=== PATIENT | male | born 1940 | race Caucasian/White ===

== ENCOUNTER 2017-10-19 11:04 | Emergency (ER) | payer MEDICARE, OTHER ==
--- NOTE | 2017-10-19 11:56 | CR ---
Chest 1V Frontal FINDINGS: The patient has had a prior sternotomy. The heart and vascular structures are normal in alexis earance. No infiltrates or effusions are demonstrated. Impression: 1. No acute findings.
--- NOTE | 2017-10-19 12:20 | EDM.PDOC ---
ED HPI GENERAL MEDICAL PROBLEM - General Chief Complaint: Cardiovascular Problem Stated Complaint: heart NAUSA Time Seen by Provider: 10/19/17 11:30 Source of Information: Reports: Patient, Family History Limitations: Reports: No Limitations - History of Present Illness INITIAL COMMENTS - FREE TEXT/NARRATIVE: pt arrived stating that he started having an episode in the middle of the nite when he became quite sweaty anf nauseated. He did not feel sob or have chest pain. He did not have chest tightness. He has a history of stopping his asa on sunday because he is supposed to have shoulder surgery the first of the week. Since he does not have chest pain and is trying to prepare for surgery asa will not be given unless he develops pain and ekg changes. Onset: Today, Sudden, Other ( started in the nite. ) Duration: Hour(s): Location: Reports: Other (pt had no chest pain. He had alot of nausea and he became very sweaty. ) Associated Symptoms: Reports: Nausea/Vomiting, Weakness - Related Data Allergies Allergy/AdvReac Type Severity Reaction Status Date / Time No Known Allergies Allergy Verified 10/19/17 11:15 Home Meds: Home Meds Aspirin [Aspirin EC] 81 mg PO DAILY 05/22/16 [History] atorvaSTATin [Lipitor] 40 mg PO BEDTIME 05/22/16 [History] Past Medical History HEENT History: Reports: Impaired Vision Cardiovascular History: Reports: Bypass, CAD, High Cholesterol Gastrointestinal History: Reports: Colon Polyp Musculoskeletal History: Reports: Osteoarthritis Oncologic (Cancer) History: Reports: Prostate, Squamous Cell Carcinoma Dermatologic History: Reports: Other (See Below) Other Dermatologic History: skin cancer squamous cell. - Infectious Disease History Infectious Disease History: Reports: Chicken Pox, Measles, Mumps - Past Surgical History Cardiovascular Surgical History: Reports: Carotid Endarterectomy, Coronary Artery Bypass Male Surgical History: Reports: Prostatectomy Musculoskeletal Surgical History: Reports: Other (See Below) Other Musculoskeletal Surgeries/Procedures:: upcoming rotator cuff surgery Early october 2017. Dermatological Surgical History: Reports: Skin Biopsy Social & Family History - Tobacco Use Smoking Status *Q: Never Smoker Years of Tobacco use: 25 Packs/Tins Daily: 1 - Alcohol Use Days Per Week of Alcohol Use: 7 Number of Drinks Per Day: 2 Total Drinks Per Week: 14 - Recreational Drug Use Recreational Drug Use: No ED ROS GENERAL - Review of Systems Review Of Systems: See Below Constitutional: Reports: Weakness, Diaphoresis HEENT: Reports: No Symptoms Respiratory: Reports: Shortness of Breath, Other ( At this time he developed sob. ) Cardiovascular: Reports: Lightheadedness, Other (sweaty. ) Endocrine: Reports: No Symptoms GI/Abdominal: Reports: No Symptoms : Reports: No Symptoms Musculoskeletal: Reports: No Symptoms Skin: Reports: No Symptoms ED EXAM, GENERAL - Physical Exam Exam: See Below Free Text/Narrative:: pt had an episode of markd diaphores several times since 3 am. He did not have cheat pain. He was very mildly sob. Exam Limited By: No Limitations General Appearance: Alert, No Apparent Distress, Anxious, Other (pupils equal and reactive. ) Ears: Normal TMs Nose: Normal Inspection Throat/Mouth: Normal Inspection Head: Atraumatic Neck: Normal Inspection Respiratory/Chest: No Respiratory Distress Cardiovascular: Regular Rate, Rhythm, Other (pt does not have chest wall tenderness. ) GI/Abdominal: Soft, Non-Tender (Male) Exam: Deferred Rectal (Males) Exam: Deferred Back Exam: Normal Inspection Extremities: Normal Inspection Neurological: Alert, Oriented, Normal Cognition Psychiatric: Anxious Course - Vital Signs Last Recorded V/S: Last Vital Signs Temp 36.5 C 10/19/17 13:50 Pulse 59 L 10/19/17 14:50 Resp 11 L 10/19/17 14:50 BP 154/81 H 10/19/17 14:50 Pulse Ox 98 10/19/17 14:50 Orthostatic Blood Pressure [ 140/73 Standing] Orthostatic Blood Pressure [ 137/87 Sitting] Orthostatic Blood Pressure [ 161/81 Supine] - Orders/Labs/Meds Orders: Active Orders 24 hr Category Date Time Status EKG Documentation Completion [RC] ASDIRECTED Care 10/19/17 11:11 Active EKG Documentation Completion [RC] ASDIRECTED Care 10/19/17 14:05 Active Orthostatic Vital Signs [RC] ASDIRECTED Care 10/19/17 13:42 Active EKG 12 Lead [EK] Routine Ther 10/19/17 11:11 Ordered EKG 12 Lead [EK] Routine Ther 10/19/17 14:04 Ordered Labs: Laboratory Tests 10/19/17 10/19/17 10/19/17 Range/Units 11:22 11:22 11:22 WBC 6.3 (4.5-11.0) K/uL RBC 4.71 (4.30-5.90) M/uL Hgb 15.1 H (12.0-15.0) g/dL Hct 44.4 (40.0-54.0) % MCV 94 (80-98) fL MCH 32 H (27-31) pg MCHC 34 (32-36) % Plt Count 215 (150-400) K/uL Neut % (Auto) 72 H (36-66) % Lymph % (Auto) 20 L (24-44) % Norman % (Auto) 7 H (2-6) % Eos % (Auto) 1 L (2-4) % Baso % (Auto) 0 (0-1) % Sodium 141 (140-148) mmol/L Potassium 4.5 (3.6-5.2) mmol/L Chloride 106 (100-108) mmol/L Carbon Dioxide 27 (21-32) mmol/L Anion Gap 8.3 (5.0-14.0) mmol/L BUN 24 H (7-18) mg/dL Creatinine 1.3 (0.8-1.3) mg/dL Est Cr Clr Drug Dosing 42.26 mL/min Estimated GFR (MDRD) 53 L (>60) Glucose 133 H (74-106) mg/dL Calcium 9.0 (8.5-10.1) mg/dL Total Bilirubin 0.5 (0.2-1.0) mg/dL AST 23 (15-37) U/L ALT 28 (12-78) U/L Alkaline Phosphatase 59 (46-116) U/L Troponin I < 0.017 (0.000-0.056) ng/mL C-Reactive Protein (0.0-0.3) mg/dL Total Protein 6.7 (6.4-8.2) g/dL Albumin 3.7 (3.4-5.0) g/dL Globulin 3.0 (2.3-3.5) g/dL Albumin/Globulin Ratio 1.2 (1.2-2.2) Lipase (73-393) U/L 10/19/17 10/19/17 10/19/17 Range/Units 12:17 12:26 14:48 WBC (4.5-11.0) K/uL RBC (4.30-5.90) M/uL Hgb (12.0-15.0) g/dL Hct (40.0-54.0) % MCV (80-98) fL MCH (27-31) pg MCHC (32-36) % Plt Count (150-400) K/uL Neut % (Auto) (36-66) % Lymph % (Auto) (24-44) % Norman % (Auto) (2-6) % Eos % (Auto) (2-4) % Baso % (Auto) (0-1) % Sodium (140-148) mmol/L Potassium (3.6-5.2) mmol/L Chloride (100-108) mmol/L Carbon Dioxide (21-32) mmol/L Anion Gap (5.0-14.0) mmol/L BUN (7-18) mg/dL Creatinine (0.8-1.3) mg/dL Est Cr Clr Drug Dosing mL/min Estimated GFR (MDRD) (>60) Glucose (74-106) mg/dL Calcium (8.5-10.1) mg/dL Total Bilirubin (0.2-1.0) mg/dL AST (15-37) U/L ALT (12-78) U/L Alkaline Phosphatase (46-116) U/L Troponin I < 0.017 (0.000-0.056) ng/mL C-Reactive Protein 0.03 (0.0-0.3) mg/dL Total Protein (6.4-8.2) g/dL Albumin (3.4-5.0) g/dL Globulin (2.3-3.5) g/dL Albumin/Globulin Ratio (1.2-2.2) Lipase 200 (73-393) U/L - Re-Assessments/Exams Free Text/Narrative Re-Assessment/Exam: 10/19/17 15:00 pt had a normal trop and no significant acute findings on his ekg.. He had a repeat ekg in 2.5 hours. He had a repeat trop.-- which is negative. 10/19/17 15:16 10/20/17 09:15 PT WAS NOT GIVEN ASA BECAUSE HE DID NOT HAVE CHEST PAIN AND HE IS PREPARING FOR A SURGERY AND IS OFF ASA. Departure - Departure Time of Disposition: 15:25 Disposition: Home, Self-Care 01 Condition: Fair Clinical Impression: Diaphoresis, Coronary artery disease Instructions: Coronary Artery Disease, Male Referrals: PCP,None [Primary Care Provider] - Forms: ED Department Discharge Care Plan Goals: schedule a lexiscan Sunday. rtc if pt has any further episodes. Pt will have the lexiscan Sunday to clear him for surgery. - My Orders Last 24 Hours: My Active Orders 10/19/17 11:11 EKG Documentation Completion [RC] ASDIRECTED EKG 12 Lead [EK] Routine 10/19/17 13:42 Orthostatic Vital Signs [RC] ASDIRECTED 10/19/17 14:04 EKG 12 Lead [EK] Routine 10/19/17 14:05 EKG Documentation Completion [RC] ASDIRECTED - Assessment/Plan Last 24 Hours: My Active Orders 10/19/17 11:11 EKG Documentation Completion [RC] ASDIRECTED EKG 12 Lead [EK] Routine 10/19/17 13:42 Orthostatic Vital Signs [RC] ASDIRECTED 10/19/17 14:04 EKG 12 Lead [EK] Routine 10/19/17 14:05 EKG Documentation Completion [RC] ASDIRECTED
[2017-10-19 14:51] VITALS: BP 154/81
== END 2017-10-19 15:53 | disposition home or self-care (01) ==
LOC: JP.ED 11:04
DX: I25.10 Atherosclerotic heart disease of native coronary artery without angina pectoris (principal); R61 Generalized hyperhidrosis; E78.00 Pure hypercholesterolemia, unspecified; Z79.82 Long term (current) use of aspirin
CPT/HCPCS: 36415; 71045; 71045-26; 80053; 83690; 84484; 85025; 86140; 93005; 99284-25

== ENCOUNTER 2019-05-14 06:32 | Day surgery (SDC) | payer MEDICARE ==
[2019-05-14] MEDS ORDERED: Lactated Ringers 1,000 ML IV SCH (07:00)
[2019-05-14] MEDS ORDERED: Propofol 200 MG/20 ML SDV ONE (07:28)
[2019-05-14] MEDS ORDERED: fentaNYL 100 MCG/2 ML SDV ONE (07:28)
[2019-05-14] MEDS ORDERED: Midazolam 1 MG/ML 2 ML SDV ONE (07:28)
[2019-05-14 08:54] VITALS: BP 115/72; PULSE 50
--- NOTE | 2019-05-15 08:41 | OR ---
DATE OF PROCEDURE: 05/14/2019 SURGEON: Diego Serra MD PREOPERATIVE DIAGNOSES: Strong family history of colon cancer, father had colon cancer. Personal history of polyps, change in bowel habits. POSTOPERATIVE DIAGNOSES: Unremarkable colonoscopy, strong family history of colon cancer. Father had colon cancer. Personal history of polyps, change in bowel habits, etiology unknown. PROCEDURE: Colonoscopy to the cecum. ANESTHESIA: IV anesthesia with monitored anesthesia care. INDICATION: This 78-year-old white male is referred for a colonoscopy because of a change in bowel habits, strong family history of colon cancer, and a personal history of polyps. He says for the past 3 weeks or so, he has had pencil-thin stools. He says his stools also used to float and now they sink to the bottom of the bowl and their color has changed to a whaley. He says the last colonoscopic exam was done 3 years ago. I counseled him for a colonoscopy with possible biopsy and/or polypectomy including risks and alternatives, and he gave his informed consent to proceed. DESCRIPTION OF PROCEDURE: The patient was placed in the left lateral decubitus position. IV anesthesia was administered by the Anesthesia Service. Time-out was held. A rectal exam was performed, which was unremarkable. The flexible video Olympus colonoscope was introduced through his anus, up his rectum, and out his colon all the way to the cecum. Once the cecum was reached, the scope was slowly withdrawn examining the mucosa throughout. No mucosal abnormalities were noted. The scope was retroflexed in the rectum with the distal rectum appearing unremarkable. The scope was straightened and removed. He tolerated the procedure well. Diego Serra MD /[id number]
== END 2019-05-14 09:00 | disposition home or self-care (01) ==
LOC: JP.SDS 06:32
PROVIDERS: ATTEND Surgery
DX: R19.4 Change in bowel habit (principal); I25.10 Atherosclerotic heart disease of native coronary artery without angina pectoris; N18.3 Chronic kidney disease, stage 3 (moderate); R97.20 Elevated prostate specific antigen [PSA]; Z95.1 Presence of aortocoronary bypass graft; Z86.010 Personal history of colon polyps; Z80.0 Family history of malignant neoplasm of digestive organs
CPT/HCPCS: 45378; J2250; J2704; J3010; J7120